=== PATIENT | male | born 1940 | race Caucasian/White ===

== ENCOUNTER → 2019-05-26 14:16 | Outpatient (CLI) | payer MEDICARE, BC, SELFPAY ==
--- NOTE | 2019-05-26 14:26 | XR_ITS ---
PROCEDURE: XR KNEE RT 3V CLINICAL INDICATION: RT KNEE PAIN COMPARISON: No exams were available for comparison FINDINGS: No fracture or dislocation. No lytic or blastic change. There is normal mineralization. There are mild osteoarthritic changes of the medial compartment and patellofemoral joint. Other findings:None. IMPRESSION: Mild osteoarthritic change otherwise negative Dictated by: Gee Bennett MD 05/26/2019 14:53 Electronically signed by Gee Bennett MD in [facility] 05/26/2019 14:53
== END ==
PROVIDERS: PCP Family Medicine; Visit Provider Family Medicine
DX: M25.561 Pain in right knee (principal)
CPT/HCPCS: 73562

== ENCOUNTER 2023-06-23 08:30 | Emergency (ER) | payer MEDICARE, SELFPAY ==
[2023-06-23] VITALS (23 sets, daily range): BP systolic 74–109; BP diastolic 39–73; PULSE 69–91; RESP 18–24; TEMP 36.6; O2SAT 91–100; BMI 37.3
--- NOTE | 2023-06-23 08:37 | XR_ITS ---
PROCEDURE INFORMATION: Exam: XR Chest Exam date and time: 06/23/2023 10:22 AM Age: 82 years old Clinical indication: Injury or trauma; Fall; Blunt trauma (contusions or hematomas); Additional info: Frequent falls, AMS TECHNIQUE: Imaging protocol: Radiologic exam of the chest. Views: 1 view. COMPARISON: CT CHEST WO CON 06/23/2023 9:40 AM FINDINGS: Lungs: See Heart/Mediastinum finding. Pleural spaces: See Heart/Mediastinum finding. Heart/Mediastinum: Cardiomegaly. Edema. Airspace consolidation lung bases left greater than right. Pleural effusion left greater than right. Bones/joints: Unremarkable. IMPRESSION: Cardiomegaly. Edema. Airspace consolidation lung bases left greater than right. Pleural effusion left greater than right.
--- NOTE | 2023-06-23 08:37 | XR_ITS ---
PROCEDURE INFORMATION: Exam: XR Left Shoulder Exam date and time: 06/23/2023 10:22 AM Age: 82 years old Clinical indication: Injury or trauma; Fall; Blunt trauma (contusions or hematomas); Shoulder; Left; Additional info: Frequent falls, bruising TECHNIQUE: Imaging protocol: Radiologic exam of the left shoulder. Views: 2 or more views. COMPARISON: CR XR CHEST PORTABLE 06/23/2023 10:22 AM FINDINGS: Bones/joints: Visualized portions of the clavicle normal. Moderate degenerative changes of the acromioclavicular joint. Glenohumeral joint normal. Scapula normal. Visualized ribs and visualized pulmonary parenchyma normal. Coracoid process normal Soft tissues: Normal. IMPRESSION: Moderate degenerative changes of the acromioclavicular joint.
--- NOTE | 2023-06-23 08:37 | CT_ITS ---
PROCEDURE INFORMATION: Exam: CT Head Without Contrast Exam date and time: 06/23/2023 9:22 AM Age: 82 years old Clinical indication: Injury or trauma; Fall; Blunt trauma (contusions or hematomas); Additional info: Fall x 2 on coumadin, rle weakness, AMS TECHNIQUE: Imaging protocol: Computed tomography of the head without contrast. Radiation optimization: All CT scans at this facility use at least one of these dose optimization techniques: automated exposure control; mA and/or kV adjustment per patient size (includes targeted exams where dose is matched to clinical indication); or iterative reconstruction. COMPARISON: No relevant prior studies available. FINDINGS: Brain: Moderate chronic microvascular ischemic changes are noted in the periventricular areas. Moderate diffuse cerebral atrophy is seen. Cerebral ventricles: No ventriculomegaly. Paranasal sinuses: Mild mucosal thickening is seen in the right maxillary sinus and ethmoid air cells. Mastoid air cells: Visualized mastoid air cells are well aerated. Bones/joints: Unremarkable. No acute fracture. Soft tissues: Unremarkable. IMPRESSION: 1. No acute findings. 2. Moderate chronic microvascular ischemic changes with moderate diffuse cerebral atrophy. 3. Mild mucosal thickening in the right maxillary sinus and ethmoid air cells.
--- NOTE | 2023-06-23 08:37 | CT_ITS ---
PROCEDURE INFORMATION: Exam: CT Lumbar Spine Without Contrast Exam date and time: 06/23/2023 9:37 AM Age: 82 years old Clinical indication: Injury or trauma; Fall; Blunt trauma (contusions or hematomas); Additional info: Fall x 2 on coumadin, rle weakness, AMS TECHNIQUE: Imaging protocol: Computed tomography of the lumbar spine without contrast. Radiation optimization: All CT scans at this facility use at least one of these dose optimization techniques: automated exposure control; mA and/or kV adjustment per patient size (includes targeted exams where dose is matched to clinical indication); or iterative reconstruction. COMPARISON: CT THORACIC SPINE WO CON 06/23/2023 9:34 AM FINDINGS: Bones/joints: Moderate degenerative disc disease diffusely reflected as decrease in disc space height and anterior endplate osteophytosis. No spondylolisthesis. No pars defect. Question mild depression of the anterior column of L1. No retropulsed fragment. Possibly physiologic. No paravertebral edema. Annular calcifications/posterior osteophytes L1-L2 and L2-L3. Moderate to severe central canal narrowing L1-L2, L2-L3, L3-L4, L4-L5. 25 degree levocurvature centered at approximately L1-L2. Intraperitoneal space: Moderate to large amount of low-attenuation fluid within the peritoneum. Likely ascites. Hounsfield units of water density. Soft tissues: See Bones/joints finding. IMPRESSION: 1. Question mild depression of the anterior column of L1. No retropulsed fragment. Possibly physiologic. No paravertebral edema. 2. Annular calcifications/posterior osteophytes L1-L2 and L2-L3. 3. Moderate to severe central canal narrowing L1-L2, L2-L3, L3-L4, L4-L5. 4. Moderate to large amount of low-attenuation fluid within the peritoneum. Likely ascites. Hounsfield units of water density. 5. 25 degree levocurvature centered at approximately L1-L2.
--- NOTE | 2023-06-23 08:37 | CT_ITS ---
PROCEDURE INFORMATION: Exam: CT Thoracic Spine Without Contrast Exam date and time: 06/23/2023 9:34 AM Age: 82 years old Clinical indication: Injury or trauma; Fall; Blunt trauma (contusions or hematomas); Additional info: Fall x 2 on coumadin, rle weakness, AMS TECHNIQUE: Imaging protocol: Computed tomography of the thoracic spine without contrast. Radiation optimization: All CT scans at this facility use at least one of these dose optimization techniques: automated exposure control; mA and/or kV adjustment per patient size (includes targeted exams where dose is matched to clinical indication); or iterative reconstruction. COMPARISON: CT CERVICAL SPINE WO CON 06/23/2023 9:31 AM FINDINGS: Bones/joints: Diffuse degenerative disc disease throughout the spine. No retropulsed fragment. Question mild depression of the anterior column of T12 and T11. No retropulsed fragment. No paravertebral edema. Physiologic versus chronic. Soft tissues: See Bones/joints finding. Heart: Cardiomegaly. Pleural effusions with adjacent atelectasis left greater than right. IMPRESSION: 1. Diffuse degenerative disc disease throughout the spine. No retropulsed fragment. 2. Question mild depression of the anterior column of T12 and T11. No retropulsed fragment. No paravertebral edema. Physiologic versus chronic. 3. Cardiomegaly. Pleural effusions with adjacent atelectasis left greater than right.
--- NOTE | 2023-06-23 08:37 | CT_ITS ---
PROCEDURE INFORMATION: Exam: CT Pelvis Without Contrast; Skeletal Exam date and time: 06/23/2023 9:49 AM Age: 82 years old Clinical indication: Injury or trauma; Fall; Blunt trauma (contusions or hematomas); Bilateral; Pelvic region; Additional info: Fall x 2 on coumadin, rle weakness, AMS TECHNIQUE: Imaging protocol: Computed tomography of the pelvis without contrast. Exam focused on the skeleton. Radiation optimization: All CT scans at this facility use at least one of these dose optimization techniques: automated exposure control; mA and/or kV adjustment per patient size (includes targeted exams where dose is matched to clinical indication); or iterative reconstruction. COMPARISON: CT ABDOMEN PELVIS WO CON 06/23/2023 9:45 AM FINDINGS: Reproductive: Prostatic enlargement. Correlate regarding hyperplasia/hypertrophy versus neoplasia. Bones/joints: osseous structures of the pelvis without an acute process. rami are intact. Sacroiliac joints without separation/diastases/fracture. Iliac bones unremarkable/noncontributory. Severe degenerative changes right hip. Diffuse degenerative disc disease throughout the lumbar spine. Severe multilevel facet hypertrophic changes. Annular calcification T12-L1. Moderate to severe central canal narrowing L2-L3, L3-L4, L4-L5. Soft tissues: Unremarkable. Other findings: Large amount of low-attenuation fluid within the abdomen. IMPRESSION: 1. Severe degenerative changes right hip. 2. Prostatic enlargement. Correlate regarding hyperplasia/hypertrophy versus neoplasia. Thickened bladder. 3. Large amount of low-attenuation fluid within the abdomen. 4. No pelvic fracture. Severe degenerative changes right hip. Severe degenerative changes in the spine. See CT spine.
--- NOTE | 2023-06-23 08:37 | XR_ITS ---
PROCEDURE INFORMATION: Exam: XR Pelvis Exam date and time: 06/23/2023 10:22 AM Age: 82 years old Clinical indication: Injury or trauma; Fall; Blunt trauma (contusions or hematomas); Bilateral; Pelvic region; Additional info: Frequent falls, AMS TECHNIQUE: Imaging protocol: Radiologic exam of the pelvis. Views: 1 or 2 view. COMPARISON: CT BONY PELVIS 06/23/2023 9:49 AM FINDINGS: Bones/joints: osseous structures of the pelvis without an acute process. rami are intact. Sacroiliac joints without separation/diastases/fracture. Iliac bones unremarkable/noncontributory. Degenerative changes within the visualized portions of the caudal aspect of the lumbar spine. Severe degenerative changes within the right hip including joint space narrowing, bony sclerosis, osteophytosis and mild remodeling. Soft tissues: See Bones/joints finding. IMPRESSION: 1. No acute process. 2. Severe degenerative changes within the right hip including joint space narrowing, bony sclerosis, osteophytosis and mild remodeling. Mild degenerative changes on the left
--- NOTE | 2023-06-23 08:37 | CT_ITS ---
PROCEDURE INFORMATION: Exam: CT Cervical Spine Without Contrast Exam date and time: 06/23/2023 9:31 AM Age: 82 years old Clinical indication: Injury or trauma; Fall; Blunt trauma; Additional info: Fall x 2 on coumadin, rle weakness, AMS TECHNIQUE: Imaging protocol: Computed tomography of the cervical spine without contrast. Radiation optimization: All CT scans at this facility use at least one of these dose optimization techniques: automated exposure control; mA and/or kV adjustment per patient size (includes targeted exams where dose is matched to clinical indication); or iterative reconstruction. COMPARISON: CT FACIAL BONES WO CON 06/23/2023 9:26 AM FINDINGS: Bones/joints: No acute fracture. Normal alignment. C2-C3: No significant disc bulge or herniation. No severe spinal canal stenosis. Multilevel neural foraminal narrowing involving the cervical spine. Lungs: Opacity in the posterior left upper lung may represent atelectasis or infection. Soft tissues: Unremarkable. IMPRESSION: No acute findings. Multilevel neural foraminal narrowing involving the cervical spine. Opacity in the posterior left upper lung may represent atelectasis or infection.
--- NOTE | 2023-06-23 08:42 | ECG_ITS ---
APPROVED REPORT Exam: Resting ECG HR:76 bpm ECG Measurements Heart Rate 76 AXES QRSd 137 QRS 95 QT 416 T 38 QTc 446 Conclusion ATRIAL FIBRILLATION RIGHT BUNDLE BRANCH BLOCK [120+ ms QRS DURATION, UPRIGHT V1, 40+ ms S IN I/aVL/V4/V5/V6] ABNORMAL ECG UNCONFIRMED REPORT Electronically signed by : PIERCE JARQUIN, 07/01/2023 01:22:47
--- NOTE | 2023-06-23 08:43 | HMH.EDGENADL ---
Discharge Plan Disposition Patient Disposition: Xfer Short-Term Hosp Referrals Follow up/Referrals: Aracelis Fowler [Primary Care Provider] - See instructions Clinical Impressions Clinical Impression: ROBLES (acute kidney injury), Shock, Anasarca, Acute hyperkalemia, Supratherapeutic INR, Ascites, Degeneration of spine, Fracture of rib, Closed compression fracture of L1 vertebra Discharge ED Provider: Cheryl Joe General Adult HPI General Chief complaint: Weakness Stated complaint: weakness Time Seen by Provider: 06/23/23 08:37 History of Present Illness HPI narrative: This patient is an 82-year-old male presenting to the emergency department for evaluation by EMS with concern for multiple falls, lethargy, and altered mental status. Patient reportedly is on Coumadin. According to EMS, they were called to the home, where patient lives with his daughter and grandson, for frequent falls, altered mental status, and lethargy. They noted that patient was initially hypotensive and gave him a 250 cc bolus of IV fluids, which improved his blood pressure and he became hypertensive. According to the patient, he is fallen twice over the last 2 weeks. He states that he is having hard time getting around because his right leg has been more weak than usual. He is very tired on clinical exam, communicating in very short sentences and short answers/responses. He does not provide much more as far as history goes. He denies any pain anywhere at this time. Awaiting on family arrival to verify patient's past medical history, medications, and other history. Related Data Allergies Allergy/AdvReac Type Severity Reaction Status Date / Time No Known Allergies Allergy Verified 06/23/23 09:15 [facility] Disclaimer: The information contained in this section may have been updated after the patient was seen, as this information can be updated by other users. Social History Smoking Status: Never smoker alcohol intake: never current occupational status: retired Travel in the last 8 weeks: None ROS Obtained: Yes unobtainable due to mental status Physical Exam General General appearance: lethargic and obese Comment: Ill-appearing Head Head exam: other (bruising to L lower chin) Eye Eye exam: Present normal appearance, PERRL and EOMI ENT ENT exam: Present normal oropharynx, mucous membranes dry and normal external ear exam Neck Neck exam: Present normal inspection, full ROM and trachea midline; Absent tenderness Chest Chest inspection: Present symmetric chest wall rise and other (Bruising to the left chest wall. Right chest wall is edematous with excoriations and skin fold under right breast tissue) Respiratory Respiratory exam: Present normal lung sounds bilaterally, prolonged expiratory phase and other (Obesity hypoventilation); Absent respiratory distress, wheezes, stridor or accessory muscle use Cardiovascular Cardiovascular exam: Present regular rate and irregular rhythm Abdominal Exam Abdominal exam: Present distention and other (Significant right-sided abdominal wall soft tissue edema.); Absent tenderness, guarding, rebound or rigidity exam: Present other (Extensive excoriation and skin breakdown, presumably from contact with urine. Patient is in soiled clothing) Extremities Exam Extremities exam: Present normal capillary refill Expanded Upper Extremity Exam Left: Shoulder exam: Present ecchymosis (Ecchymosis to left shoulder. No significant bony tenderness. All compartments soft. Neurovascularly intact distally.) Expanded Lower Extremity Exam Right: Hip/Pelvis exam: Present normal inspection and full ROM Upper leg exam: Present normal inspection and full ROM Lower leg exam: Present other (Atrophy noted of the right calf) Left: Hip/Pelvis exam: Present normal inspection and full ROM Upper leg exam: Present normal inspection and full ROM Lower leg exam: Present other (Edema with chronic skin changes) Back Exam Back exam: Absent tenderness Neurological Exam Neurological exam: Present alert, oriented X3, CN II-XII intact and normal gait; Absent motor sensory deficit Psychiatric Psychiatric exam: Present normal affect and normal mood Skin Skin exam: Present warm, dry and other (Scattered ecchymosis to the face, left shoulder, chest. Extensive excoriation and skin breakdown, especially in the groin. Significantly worse on the right side. Chronic skin changes to the left lower extremity.) Medical Decision Making Medical Records Medical records reviewed: Yes I reviewed the patient's medical records. [place] Inquiry Pt receiving controlled substance: No Vital Signs: 06/23/23 08:31 06/23/23 09:01 06/23/23 10:00 Pulse Rate 69 75 Pulse Rate [Right] 79 Respiratory Rate 24 18 Blood Pressure 105/55 L 75/53 L Blood Pressure [Right Arm] 109/62 L Blood Pressure Mean 71 60 Blood Pressure Mean [Right Arm] 77 Blood Pressure Source [Right Arm] Automatic Cuff 02 Sat by Pulse Oximetry 96 94 L 93 L Oxygen Delivery Method Nasal Cannula Nasal Cannula Nasal Cannula Oxygen Flow Rate (LPM) 3 3 3 06/23/23 10:14 06/23/23 10:20 06/23/23 10:50 Pulse Rate 70 78 70 Pulse Rate [Right] Respiratory Rate 20 Blood Pressure 75/40 L 79/42 L 88/56 L Blood Pressure [Right Arm] Blood Pressure Mean 51 47 66 Blood Pressure Mean [Right Arm] Blood Pressure Source [Right Arm] 02 Sat by Pulse Oximetry 94 L 98 100 Oxygen Delivery Method Nasal Cannula Nasal Cannula Nasal Cannula Oxygen Flow Rate (LPM) 3 3 3 06/23/23 11:01 Pulse Rate 77 Pulse Rate [Right] Respiratory Rate 18 Blood Pressure 97/57 L Blood Pressure [Right Arm] Blood Pressure Mean 67 Blood Pressure Mean [Right Arm] Blood Pressure Source [Right Arm] 02 Sat by Pulse Oximetry 99 Oxygen Delivery Method Nasal Cannula Oxygen Flow Rate (LPM) 3 Lab Data Lab results reviewed: Yes I reviewed the patient's lab results. Lab Results 06/23/23 08:35: WBC 6.1, RBC 3.72 L, Hgb 9.3 L, Hct 30.9 L, MCV 82.9, MCH 25.0 L, MCHC 30.2 L, RDW 17.5, Plt Count 173, MPV 9.6, Neut % (Auto) 81.5 H, Lymph % (Auto) 11.7, Cross % (Auto) 4.8, Eos % (Auto) 1.1, Baso % (Auto) 0.9, Neut # (Auto) 5.0, Lymph # (Auto) 0.7, Cross # (Auto) 0.3, Eos # (Auto) 0.1, Baso # (Auto) 0.1, PT 70.9 H, INR 7.49 H, APTT 59.2 H, Sodium 138, Potassium 6.2 H*, Chloride 107, Carbon Dioxide 24, Anion Gap 13.2, BUN 102 H*, Creatinine 4.80 H, Estimated Creat Clear 20, Estimated GFR 12 L*, Est GFR ( Amer) 14 L*, Glucose 119 H, Lactate 1.1, Calcium 9.2, Phosphorus 6.3 H, Magnesium 2.6 H, Total Bilirubin 0.8, AST 31, ALT 19, Alkaline Phosphatase 94, Total Creatine Kinase 131, Troponin I 0.01, NT-Pro-B Natriuret Pep 6980 H 06/23/23 08:35: NT-Pro-B Natriuret Pep 6930 H, Total Protein 6.1 L, Albumin 3.3 L, Globulin 2.8, Albumin/Globulin Ratio 1.2 06/23/23 08:58: Ammonia 22 06/23/23 09:05: VBG pH 7.11 L, VBG pCO2 61.6 H, VBG pO2 49.9 H, VBG HCO3 19.2 L, VBG Total CO2 21.1 L, VBG O2 Saturation 74.9 H, VBG Base Excess -10.3 L, VBG Lactic Acid 1.8 06/23/23 10:58: Troponin I 0.01 06/23/23 08:35 06/23/23 08:35 Orders (Tests/Meds): ED MEDICATIONS Generic Name Dose Route Start Last Admin Trade Name Freq PRN Reason Stop Dose Admin Calcium Gluconate/Sodium Chloride 2 gm in 100 mls @ 50 mls/hr 06/23/23 09:47 06/23/23 10:00 Calcium Gluconate 2,000mg/100ml Nacl Premix IV 06/23/23 11:46 50 mls/hr ONCE ONE Administration Norepinephrine/Dextrose 8 mg in 250 mls @ 3.75 mls/hr 06/23/23 10:31 06/23/23 11:35 Norepinephrine 8mg/250ml-D5w Premix IV 07/23/23 10:30 6 mcg/min .Q24H SARAI 11.25 mls/hr Infusion Protocol 2 MCG/MIN Vancomycin HCl 2,000 mg/ 250 mls @ 125 mls/hr 06/23/23 11:15 06/23/23 11:25 Sodium Chloride IV 06/23/23 13:14 125 mls/hr ONCE ONE Administration Miscellaneous 1 each 06/23/23 11:00 06/23/23 11:15 Vancomycin Consult Request NOTAPPLIC 07/23/23 10:59 1 each CONSULT PHARMACY SARAI Administration Discontinued Medications Generic Name Dose Route Start Last Admin Trade Name Freq PRN Reason Stop Dose Admin Acetaminophen 1,000 mg 06/23/23 09:52 06/23/23 10:04 Acetaminophen 1,000mg/100ml Vial IV 06/23/23 09:53 1,000 mg ONCE ONE Administration Albuterol Sulfate 10 mg 06/23/23 09:49 06/23/23 10:03 Albuterol 0.083% 2.5 Mg/3 Ml Neb IH 06/23/23 09:50 10 mg ONCE ONE Administration Dextrose 50 ml 06/23/23 09:47 06/23/23 10:01 Dextrose 50% 50ml Syringe (Crash Cart) IVP 06/23/23 09:48 50 ml ONCE ONE Administration Lactated Ringer's 1,000 mls @ 999 mls/hr 06/23/23 09:06 06/23/23 09:59 Lactated Ringer's 1000 Ml Bag IV 06/23/23 10:06 999 mls/hr .Q1H1M ONE Administration Piperacillin Sod/Tazobactam 50 mls @ 100 mls/hr 06/23/23 11:00 06/23/23 11:12 Sod 3.375 gm/ Sodium Chloride IV 06/23/23 11:29 100 mls/hr ONCE ONE Administration Insulin Human Regular 10 unit 06/23/23 09:47 06/23/23 10:01 Insulin Human Regular 100 Units/Ml 10ml Vial IVP 06/23/23 09:48 10 unit ONCE ONE Administration Morphine Sulfate 2 mg 06/23/23 09:52 06/23/23 10:05 Morphine 2mg/Ml Syringe IV 06/23/23 09:53 2 mg ONCE ONE Administration ORDERS Category Date Time Status CT abdomen pelvis wo con Stat Cat Scan 06/23/23 09:[address] bony pelvis Stat Cat Scan 06/23/23 08:[address] cervical spine wo con Stat Cat Scan 06/23/23 08:[address] chest wo con Stat Cat Scan 06/23/23 09:[address] facial bones wo con Stat Cat Scan 06/23/23 08:[address] head/brain wo con Stat Cat Scan 06/23/23 08:[address] lumbar spine wo con Stat Cat Scan 06/23/23 08:[address] thoracic spine wo con Stat Cat Scan 06/23/23 08:37 Completed XR chest portable Stat Exams 06/23/23 08:37 Completed XR pelvis 1-2V Stat Exams 06/23/23 08:37 Completed XR shoulder LT min 2V Stat Exams 06/23/23 08:37 Completed Activated Partial Thrombo Time Stat Lab 06/23/23 08:35 Completed Ammonia Stat Lab 06/23/23 08:58 Completed BMP [Basic Metabolic Panel] Stat Lab 06/23/23 11:28 Ordered BNP [NT Pro Brain Natriuretic Pep.] Stat Lab 06/23/23 08:35 Completed Complete Blood Count Auto Diff Stat Lab 06/23/23 08:35 Completed Comprehensive Metabolic Panel Stat Lab 06/23/23 08:35 Completed Creatine Kinase Stat Lab 06/23/23 08:35 Completed Lactic Acid Stat Lab 06/23/23 08:35 Completed Magnesium Stat Lab 06/23/23 08:35 Completed NT Pro Brain Natriuretic Pep. Stat Lab 06/23/23 08:35 Completed Phosphorous Stat Lab 06/23/23 08:35 Completed Prothrombin Time INR Stat Lab 06/23/23 08:35 Completed Troponin I Q3H Lab 06/23/23 10:58 Completed Troponin I Q3H Lab 06/23/23 14:45 Ordered Troponin I Stat Lab 06/23/23 08:35 Completed Urinalysis and Microscopic Stat Lab 06/23/23 08:37 Ordered Blood Culture Stat Micro 06/23/23 10:58 Received Venous Blood Gas Stat RT 06/23/23 09:05 Completed ECG Data Tracing #1: I reviewed this ECG and interpreted as documented below: Atrial fibrillation with a ventricular rate of [address] changes concerning for ischemia. Right bundle branch block noted. ECG initial impression date: 06/23/23 ECG initial impression time: 08:44 Medical Decision Narrative: In summary, this patient is a 82-year-old male presenting to the Emergency Department for evaluation of frequent falls, lethargy, and altered mental status. He is on Coumadin. Differential diagnoses considered include but are not limited to head trauma, C-spine trauma, polytrauma, respiratory failure, pneumonia, CVA, urinary tract infection, CHF, rhabdomyolysis. Ruling out the most morbid conditions drove assessment. On exam, the patient is ill-appearing with lethargy, general weakness, scattered ecchymosis, extensive skin breakdown, and notable right lower leg atrophy. He has new O2 requirement of 3L NC. Workup included broad lab evaluation including infectious, metabolic, and cardiac workup as well as full trauma CT scans of the head, C/T/L-spine, bony pelvis, as well as CT angiograms of the head, neck, chest, abdomen, and pelvis. Patient's daughter arrives and notes that she just moved in with him about a week ago and had really started to notice how poor health he was in. He has not had control of his bladder since a prostate surgery, and she frequently has to change his bed sheets because he is been urinating on himself. With his falls and lethargy, she thought something was not right so she called EMS. She does bring a bag of medications, which has his Coumadin, oxybutynin, hydrocodone, a statin, metformin, triamterene/HCTZ, Lasix, metoprolol, and potassium. Labs were obtained which demonstrated acute renal failure with a creatinine of 4.8 and GFR of 12. Patient's daughter states that she does not think that he has kidney disease but she is not sure. Unable to compare to prior labs, as the patient follows with a PCP in [place]. He does have hyperkalemia with a potassium of 6.2 without acute EKG changes. Given his acute renal failure, scans were changed to noncontrasted scans and no IV contrast was administered. BNP is elevated at 6930, which is of low utility in the setting of acute renal failure. He does have edema on exam, however he appears clinically dry with intravascular depletion, soft blood pressure, delayed capillary refill, and significantly dry mucous membranes. For treatment of these things, he was given a bolus of IV fluids, nebs, IV calcium gluconate, and insulin + dextrose. He also has a respiratory and metabolic acidosis in addition to anemia with a hemoglobin of 9.3. INR is elevated at 7.49. No notable sources of bleeding at this time with the exception of some scattered ecchymoses on exam. No indication for reversal right now, but scans are pending. I independently interpreted CT scans prior to the radiologist read and noted anasarca and ascites. I did not see any acute intracranial hemorrhage. Please see their read for final interpretation. They do note significant degenerative change in his spine as well as concerns for an L1 compression fracture and of rib fracture that is displaced. Patient is tender over these areas, so I feel this could be acute in the setting of his recent falls. On subsequent reassessments, the patient has become more hypotensive. I initiated conversations with [facility] with concern that he needs higher level of care for evaluation by trauma and nephrology. They accepted the patient for transfer. Accepting physician was Dr. Mccurdy. Transport was arranged. Prior to transport, patient required initiation of Levophed for pressure support. Given unknown etiology of his shock, broad-spectrum antibiotics were administered with IV vancomycin and Zosyn. Blood cultures were sent and are pending at this time. Patient was transported in stable condition. Critical Care Critical Care Time Critical Care Time: No
--- NOTE | 2023-06-23 08:46 | CT_ITS ---
PROCEDURE INFORMATION: Exam: CT Maxillofacial Without Contrast Exam date and time: 06/23/2023 9:26 AM Age: 82 years old Clinical indication: Injury or trauma; Fall; Blunt trauma (contusions or hematomas); Other: Facial bruising; Additional info: Facial trauma/bruising TECHNIQUE: Imaging protocol: Computed tomography of the face without contrast. Radiation optimization: All CT scans at this facility use at least one of these dose optimization techniques: automated exposure control; mA and/or kV adjustment per patient size (includes targeted exams where dose is matched to clinical indication); or iterative reconstruction. COMPARISON: CT HEAD/BRAIN WO CON 06/23/2023 9:22 AM FINDINGS: Orbital cavities: Orbits are normal. Globes are unremarkable. Bones/joints: Evaluation of the mandible is limited due to motion artifact. No definite evidence of the mandible is noted. Paranasal sinuses: Mild mucosal thickening is seen in both maxillary sinuses, sphenoid sinus and ethmoid air cells. Soft tissues: Unremarkable. IMPRESSION: 1. No acute findings. 2. Mild mucosal thickening in both maxillary sinuses, sphenoid sinus and ethmoid air cells. 3. Evaluation of the mandible is limited due to motion artifact. No definite evidence of the mandible is noted.
[2023-06-23 08:47] LABS: Basophils # 0.1 K/mm3 (0-0.2); Basophils % 0.9 % (0.1-2.0); Eosinophils # 0.1 K/mm3 (0.0-0.4); Eosinophils % 1.1 % (0.1-12.0); Hematocrit 30.9 % (42.0-52.0); Hemoglobin 9.3 g/dL (14.1-18.0); Lymphocytes # 0.7 K/mm3 (0.7-4.5); Lymphocytes % 11.7 % (10-50); Mean Corpuscular HGB Conc 30.2 g/dL (31.8-35.4); Mean Corpuscular Volume 82.9 fl (80-94); Mean Platelet Volume 9.6 fl (7.4-10.4); Monocytes # 0.3 K/mm3 (0.1-1.0); Monocytes % 4.8 % (1.7-9.3); Neutrophils % 81.5 % (37.0-80.0); Platelet Count 173 K/mm3 (142-424); Red Blood Count 3.72 M/mm3 (4.60-6.20); Red Cell Distribution Width 17.5 % (11.5-17.5); White Blood Count 6.1 K/mm3 (4.8-10.8)
[2023-06-23 08:55] LABS: Chloride 107 mmol/L (98-107); Sodium 138 mmol/L (136-145)
[2023-06-23 08:57] LABS: Alanine Aminotransferase 19 U/L (12-78); Aspartate Amino Transferase 31 U/L (17-59); Estimated Glomerular Filt Rate 12 ml/min (>60); GFR (African American) 14 ML/MIN (>60)
[2023-06-23 08:58] LABS: Albumin Level 3.3 g/dl (3.5-5.0); Albumin/Globulin Ratio 1.2 (1.1-1.8); Alkaline Phosphatase 94 U/L (38-126); Anion Gap 13.2 mEq/L (5-15); Bilirubin,Total 0.8 mg/dl (0.2-1.3); Calcium 9.2 mg/dl (8.4-10.2); Carbon Dioxide 24 mmol/L (22.0-30.0); Creatine Kinase 131 U/L (55-170); Globulin 2.8 g/dL (1.3-3.2); Glucose 119 mg/dl (74-100); Lactic Acid 1.1 mmol/L (0.7-2.1); Total Protein,Serum 6.1 g/dl (6.3-8.2)
[2023-06-23 09:02] LABS: Creatinine Clearance Estimated 20 mL/min (50-200)
[2023-06-23 09:03] LABS: Blood Urea Nitrogen 102 mg/dl (9-20); Potassium 6.2 mmoL/L (3.5-5.1)
--- NOTE | 2023-06-23 09:04 | PC.NURSE ---
lab called with criticals POTASSIUM - 6.2 BUN- 102 CREAT-4.8
[2023-06-23 09:05] LABS: Phosphorous 6.3 mg/dl (2.5-4.5)
--- NOTE | 2023-06-23 09:05 | CT_ITS ---
PROCEDURE INFORMATION: Exam: CT Abdomen And Pelvis Without Contrast Exam date and time: 06/23/2023 9:45 AM Age: 82 years old Clinical indication: Injury or trauma; Fall; Blunt; Generalized; Additional info: Frequent falls, AMS, bruising, renal failure TECHNIQUE: Imaging protocol: Computed tomography of the abdomen and pelvis without contrast. Radiation optimization: All CT scans at this facility use at least one of these dose optimization techniques: automated exposure control; mA and/or kV adjustment per patient size (includes targeted exams where dose is matched to clinical indication); or iterative reconstruction. COMPARISON: CT CHEST WO CON 06/23/2023 9:40 AM FINDINGS: Liver: Normal. No mass. Gallbladder and bile ducts: Normal. No calcified stones. No ductal dilation. Pancreas: Normal. No ductal dilation. Spleen: Normal. No splenomegaly. Adrenal glands: Normal. No mass. Kidneys and ureters: Cortical cyst left kidney 2 cm. Atrophy of the lower pole the left kidney. 10 mm cortical calcification. Stomach and bowel: Air-filled large bowel. Particulate filled stomach. Appendix: What is believed to be the appendix is normal in appearance. Nevertheless, there is no discrete evidence of appendicitis. Intraperitoneal space: Large amount of low-attenuation fluid within the peritoneum more pronounced in the perihepatic region and lower abdomen. Hounsfield units of approximately 15. Ascites. Vasculature: Unremarkable. No abdominal aortic aneurysm. Lymph nodes: Unremarkable. No enlarged lymph nodes. Urinary bladder: Unremarkable as visualized. Reproductive: Prostatic enlargement. Correlate regarding hyperplasia/hypertrophy versus neoplasia. Bones/joints: Unremarkable. No acute fracture. Soft tissues: Unremarkable. Other findings: No discrete evidence of visceral trauma although limited without IV contrast. Soft tissue anasarca. IMPRESSION: 1. Large amount of low-attenuation fluid within the peritoneum more pronounced in the perihepatic region and lower abdomen. Hounsfield units of approximately 15. Ascites. 2. No discrete evidence of visceral trauma although limited without IV contrast. 3. Prostatic enlargement. Correlate regarding hyperplasia/hypertrophy versus neoplasia. Thickened bladder. 4. Soft tissue anasarca. COMMENTS: Consistent with the [employer]'s Incidental Findings Committee white paper (J Am Becki Radiol 2018): Any incidental renal lesion less than 1 cm or classified as too small to characterize, or any incidental cystic renal lesion characterized as simple-appearing, is likely benign. No follow-up imaging is recommended for these lesions per consensus recommendations based on imaging criteria.
--- NOTE | 2023-06-23 09:05 | CT_ITS ---
PROCEDURE INFORMATION: Exam: CT Chest Without Contrast; Diagnostic Exam date and time: 06/23/2023 9:40 AM Age: 82 years old Clinical indication: Injury or trauma; Fall; Blunt trauma (contusions or hematomas); Additional info: Frequent falls, AMS, bruising, resp failure TECHNIQUE: Imaging protocol: Diagnostic computed tomography of the chest without contrast. Radiation optimization: All CT scans at this facility use at least one of these dose optimization techniques: automated exposure control; mA and/or kV adjustment per patient size (includes targeted exams where dose is matched to clinical indication); or iterative reconstruction. COMPARISON: CT THORACIC SPINE WO CON 06/23/2023 9:34 AM FINDINGS: Lungs: Pulmonary nodule within the middle lobe of 14 mm. Well-circumscribed. Pleural spaces: Moderate left pleural effusion and tiny right pleural effusion. Heart: Global cardiomegaly. Aortic valvular calcifications Coronary arteries: Dense coronary calcifications Lymph nodes: Unremarkable. No enlarged lymph nodes. Vasculature: Calcification of the aorta. Bones/joints: prior sternotomy. prior sternotomy. Mildly displaced fracture of the 12th rib on the left posteriorly. Age indeterminate. Soft tissues: Soft tissue anasarca more pronounced on the left posteriorly. IMPRESSION: 1. Mildly displaced fracture of the 12th rib on the left posteriorly. Age indeterminate. 2. Moderate left pleural effusion and tiny right pleural effusion. Adjacent airspace consolidation versus atelectasis. 3. Pulmonary nodule within the middle lobe of 14 mm. Well-circumscribed. 4. Soft tissue anasarca more pronounced on the left posteriorly.
[2023-06-23 09:06] LABS: Magnesium 2.6 mg/dl (1.6-2.3)
[2023-06-23 09:07] LABS: NT Pro Brain Natriuretic Pep. 6980 pg/mL (0-450)
[2023-06-23 09:09] LABS: Activated Partial Thrombo Time 59.2 seconds (22.8-30.6)
[2023-06-23 09:11] LABS: INR 7.49 (0.9-1.1); Prothrombin Time 70.9 seconds (10.1-12.5)
[2023-06-23 09:13] LABS: Troponin I 0.01 ng/ml (0.00-0.034)
[2023-06-23 09:14] LABS: NT Pro Brain Natriuretic Pep. 6930 pg/mL (0-450)
--- NOTE | 2023-06-23 09:14 | PC.NURSE ---
pt given a bath and changed into a gown at this time
[2023-06-23 09:15] LABS: Ammonia 22 umol/L (9-30)
--- NOTE | 2023-06-23 09:20 | PC.NURSE ---
pt in CT at this time
[2023-06-23 09:29] LABS: VBG HCO3 19.2 mmol/L (23-30); VBG PCO2 61.6 mmol/L (35-51); VBG PH 7.11 mmol/L (7.31-7.41); VBG PO2 49.9 mmol/L (28-40)
[2023-06-23 09:30] LABS: Lactate Venous 1.8 mmol/L (0.4-2.0); VBG Base Excess -10.3 mmol/L (-2.4-2.3); VBG Oxygen Saturation 74.9 % (50-70); VBG Total CO2 21.1 mmol/L (23-27)
--- NOTE | 2023-06-23 09:52 | PC.NURSE ---
pt back from CT
--- NOTE | 2023-06-23 09:53 | PC.NURSE ---
PT RETURNED FROM CT
[2023-06-23] MEDS: LACTATED RINGERS 1000ML 1,000 ML 999 ML IV (09:59)
[2023-06-23] MEDS: CALCIUM GLUC IN NACL, ISO-OSM 2 GM/100 ML BAG IV (10:00)
[2023-06-23] MEDS: INSULIN HUMAN REGULAR 100 UNITS/ML 10ML VIAL 10 UNIT IVP (10:01)
[2023-06-23] MEDS: DEXTROSE 50% 50ML SYRINGE (CRASH CART) 50 ML IVP (10:01)
[2023-06-23] MEDS: ALBUTEROL 0.083% 2.5 MG/3 ML NEB 10 MG IH (10:03)
[2023-06-23] MEDS: ACETAMINOPHEN 1,000MG/100ML VIAL 1000 MG IV (10:04)
[2023-06-23] MEDS: MORPHINE 2MG/ML SYRINGE 2 MG IV (10:05)
--- NOTE | 2023-06-23 11:02 | PC.NURSE ---
CAlled to begin transfer to [facility], Nurse Coordinator will call back devika
[2023-06-23] MEDS: PIPERACILLIN/TAZO 3.375 GM in 0.9 % SODIUM CHLORIDE 50 ML IV (11:12)
--- NOTE | 2023-06-23 11:14 | PC.NURSE ---
calling [facility] @ this time
[2023-06-23] MEDS: VANCOMYCIN CONSULT REQUEST 1 EACH NOTAPPLIC (11:15)
[2023-06-23] MEDS: NOREPINEPHRINE BITARTRATE/D5W 8 MG/250 ML PLAST..BAG 3.75 MG IV (11:25)
[2023-06-23] MEDS: VANCOMYCIN HCL 2,000 MG in 0.9 % SODIUM CHLORIDE 250 ML 125 MG IV (11:25)
--- NOTE | 2023-06-23 11:26 | PC.NURSE ---
pt accepted to [facility]
[2023-06-23 11:27] LABS: Troponin I 0.01 ng/ml (0.00-0.034)
--- NOTE | 2023-06-23 11:47 | PC.NURSE ---
[facility] [employer] [facility] CONTACTED AT THIS TIME FOR WEATHER CHECK FOR TRANSFER IF ACCEPTED, [place] WILL BE 22 MINUTES ETA GAS STATION OPERATOR NOTIFIED
[2023-06-23 11:52] LABS: Chloride 108 mmol/L (98-107); Sodium 138 mmol/L (136-145)
[2023-06-23 11:53] LABS: Potassium 5.3 mmoL/L (3.5-5.1)
[2023-06-23 11:55] LABS: Creatinine Clearance Estimated 19 mL/min (50-200); Estimated Glomerular Filt Rate 11 ml/min (>60); GFR (African American) 13 ML/MIN (>60)
--- NOTE | 2023-06-23 11:55 | PC.NURSE ---
RETURN CALL FROM [employer], PT ACCEPTED. 22 MINUTE ETA, HOUSE SUPER VISOR NOTIFIED
--- NOTE | 2023-06-23 11:55 | PC.NURSE ---
report called to GILBERTO spann at
[2023-06-23 11:56] LABS: Anion Gap 12.3 mEq/L (5-15); Calcium 8.9 mg/dl (8.4-10.2); Carbon Dioxide 23 mmol/L (22.0-30.0); Glucose 123 mg/dl (74-100)
[2023-06-23 11:57] LABS: Blood Urea Nitrogen 98 mg/dl (9-20)
--- NOTE | 2023-06-23 11:58 | PC.NURSE ---
criticals called from lab: BUN: 98 Creat 5.1
--- NOTE | 2023-06-23 12:07 | PC.NURSE ---
[facility] Reported ETA 10 MINS
--- NOTE | 2023-06-23 12:08 | PC.NURSE ---
[facility] 10 mins out
--- NOTE | 2023-06-23 12:51 | PC.NURSE ---
delay in flight d/t aircraft size. [facility] speaking with dispatch for another aircraft
--- NOTE | 2023-06-23 14:41 | PC.NURSE ---
pt loaded on stretcher at this time for air transport to
--- NOTE | 2023-06-28 03:20 | PC.NURSE ---
pt transfered to [facility]. preliminary blood culture faxed to [facility] [phone]
--- NOTE | 2023-06-30 11:01 | PC.NURSE ---
preliminary blood cultures was faxed to [facility] where pt was sent. waiting on final
--- NOTE | 2023-07-02 10:00 | PC.NURSE ---
final urine culture discussed with , pt transferred to , faxed to [phone]
== END 2023-06-23 14:54 | disposition short-term general hospital (02) ==
PROVIDERS: Emergency Provider Emergency Medicine; PCP Family Medicine
DX: A41.89 Other specified sepsis (principal); R65.21 Severe sepsis with septic shock; B95.61 Methicillin susceptible Staphylococcus aureus infection as the cause of diseases classified elsewhere; B96.6 Bacteroides fragilis [B. fragilis] as the cause of diseases classified elsewhere; S32.010A Wedge compression fracture of first lumbar vertebra, initial encounter for closed fracture; S22.32XA Fracture of one rib, left side, initial encounter for closed fracture; E87.5 Hyperkalemia; I45.19 Other right bundle-branch block; I48.0 Paroxysmal atrial fibrillation; N17.9 Acute kidney failure, unspecified; R60.1 Generalized edema; R79.1 Abnormal coagulation profile; R18.8 Other ascites; E11.9 Type 2 diabetes mellitus without complications; I10 Essential (primary) hypertension; Z79.01 Long term (current) use of anticoagulants; Z79.84 Long term (current) use of oral hypoglycemic drugs
CPT/HCPCS: 70450; 70486; 71045; 71250; 72125; 72128; 72131; 72170; 72192; 73030; 74176; 80048; 80053; 82140; 82550; 82803; 83605; 83735; 83880; 84100; 84484; 85025; 85610; 85730; 87040; 93005; 96365; 96366; 96375; 99291; J0131; J2543; J3370